=== PATIENT | female | born 1955 | race Caucasian/White ===

== ENCOUNTER 2017-02-27 13:48 | Outpatient (CLI) | payer BC ==
[~2017-02-27] VITALS: Ht 154.9 cm; Wt 54.1 kg
[2017-02-27 14:18] VITALS: BP 123/68; Ht 154.9 cm; Wt 54.1 kg
--- NOTE | 2017-02-27 14:40 | NUR ---
AFTER PATIENT REVIEWED LITERATURE RE PROLIA SHE DECLINED DUE TO POTENTIAL FOR JAWBONE DETERIORATION, WHICH SHE HAS HAD WITH [facility]. SHE WILL FOLLOW UP AND DISCUSS OPTIONS WITH DR. CRYSTAL.
== END 2017-02-27 14:44 | disposition home or self-care (01) ==
LOC: D.OPS 13:48
DX: M81.0 Age-related osteoporosis without current pathological fracture (principal)